=== PATIENT | male | born 1990 | race Caucasian/White ===

== ENCOUNTER 2018-12-27 18:53 | Emergency (ER) | payer OTHER ==
[~2018-12-27] VITALS: Ht 177.8 cm; Wt 79.4 kg
[2018-12-27 19:19] VITALS: BP 165/99
== END 2018-12-27 20:16 | disposition home or self-care (01) ==
LOC: ER 18:56
DX: F41.9 Anxiety disorder, unspecified (principal); M54.5 Low back pain; R10.84 Generalized abdominal pain; R51 Headache; R03.0 Elevated blood-pressure reading, without diagnosis of hypertension